=== PATIENT | female | born 1950 | race Caucasian/White ===

== ENCOUNTER → 2018-08-13 | Outpatient (CLI) | payer BC ==
[~2018-08-13] MED LIST: ALPR1TAB2 PO; ANAS1TAB47 PO; CALC1TAB80 PO; DULO60CA6 PO; HYDR-2145 PO; MELA3TAB2 PO; MULT-629 PO; OLME1TAB21 PO; OMEG1CAP6 PO; SERT50TA PO; TRAM50TA PO
--- NOTE | 2018-08-13 15:16 | KCIC ---
Bone densitometry 08/13/2018 12:30 PM Indication: Postmenopausal. History of breast cancer. Comparison Study: None. Discussion: Bone Densitometry was performed with dual photon absorption of the lumbar spine and proximal left femur.. Lumbar Spine: Bone average density is 1.577g/cm2 for L1-L4. T-Score is 4.8. Bone mineral density measurements of the lumbar spine may be falsely elevated secondary to sclerotic/ degenerative changes seen on CT of the lumbar spine from August 19, 2013. Left femoral neck: Bone average density is 1.143g/cm2. T-Score is 1.6. IMPRESSION: Normal bone mineral density. Note: Definitions established by the World Health Organization: Normal: T-score is -1.0 or above. Osteopenia: T-score is between -1.0 and -2.5. Osteoporosis: T-score is -2.5 or below. Electronically signed by: Eduard Knott MD (08/13/2018 3:13 PM) [id number]
== END | disposition home or self-care (01) ==
LOC: KCIC DEXA 12:16
PROVIDERS: ATTEND Internal Medicine Hematology & Oncology
DX: C50.112 Malignant neoplasm of central portion of left female breast (principal); Z78.0 Asymptomatic menopausal state; Z85.3 Personal history of malignant neoplasm of breast
CPT/HCPCS: 77080

== ENCOUNTER → 2020-07-03 | Outpatient (CLI) | payer BC, MEDICARE ==
[~2020-07-03] MED LIST changes: -MELA3TAB2 PO; +MELA3TAB4 PO
--- NOTE | 2020-07-03 15:09 | RAD ---
EXAM: Carotid Doppler sonogram. HISTORY: Internal carotid artery occlusion. Atherosclerosis. TECHNIQUE: Chung scale and color Doppler sonographic evaluation of the neck with spectral waveform yves lysis was performed and static images are submitted for review. FINDINGS: There is a right internal carotid artery stent. The peak systolic velocity within the right common carotid artery is 69 cm/sec. The peak systolic velocity within the right internal carotid art francesco is 84 cm/sec and the end diastolic velocity within the right internal carotid artery is 25 cm/sec . The right ICA/CCA ratio is 1.2. The peak systolic velocity within the left common carotid artery is 98 cm/sec. The peak systolic [place] within the left internal carotid artery is 76 cm/sec and the end diastolic velocity within the l eft internal carotid artery is 28 cm/sec. The left ICA/CCA ratio is 0.86. There is normal antegrade flow within both vertebral arteries. IMPRESSION: 1. Right internal carotid artery stent. 2. Doppler findings suggesting less than 50 percent stenosis involving the bilateral internal carotid arteries PQRS Compliance Statement - Stenosis calculations for CT, MR and conventional angiography are based u estelita measurement of the distal ICA diameter in accordance with the NASCET methodology. Stenosis calcu lations for carotid ultrasound studies are derived from validated velocity criteria which are known t o correlate with the NASCET methodology. Electronically signed by: Ann Longoria MD (07/03/2020 3:07 PM) [id number]
== END ==
LOC: US 13:43
PROVIDERS: ATTEND Psychiatry & Neurology Neurology
DX: I65.21 Occlusion and stenosis of right carotid artery (principal)
CPT/HCPCS: 93880

== ENCOUNTER → 2020-12-28 | Outpatient (CLI) | payer MEDICARE ==
[~2020-12-28] MED LIST changes: -DULO60CA6 PO; +DULO60CA7 PO
--- NOTE | 2020-12-28 15:34 | KCIC ---
STUDY: CT of the right and left extremities without contrast - Conformis protocol INDICATION: Primary a arthrosis of both knees. Preoperative planning. COMPARISON: No prior CT. TECHNIQUE: Axial CT imaging of the bilateral lower extremities without intravenous contrast. Per Conf ormis protocol, images were obtained of the hip, knee and ankle joints with thinner sections and kenyatta nal/sagittal reformats at the knee. One or more of the following individualized dose reduction techniques were utilized for this examinat ion: 1. Automated exposure control 2. Adjustment of the mA and/or kV according to patient size 3. Use of iterative reconstruction technique. FINDINGS: Right lower extremity: Hip: Mild arthrosis. Mild/moderate rectal distention with well-formed stool. Sigmoid diverticuli. Knee: Advanced tricompartmental osteoarthrosis with end-stage involvement of the medial compartment w here there is rnad-fu-xexs and articular surface remodeling. Prominent osteophytes. Small knee joint effusion with loose bodies. Grossly intact extensor mechanism. Small Delarosa's cyst. Ankle: Arthrosis at the ankle is mild. Chronic mineralization along the posterior margin of the media l gutter. Plantar calcaneal spur and thickening of the proximal plantar fascia. Left lower extremity: Hip: Mild arthrosis. Knee: Advanced tricompartmental osteoarthrosis with greatest involvement of the medial femorotibial c ompartment with near [id number]-[id number] in addition to subchondral sclerosis and cystic change. Prominent o steophytes. Trace joint effusion. A few loose bodies. Grossly intact extensor mechanism. Ankle: Mild arthrosis at the ankle. Plantar calcaneal spur and thickening of the proximal plantar fas ben. IMPRESSION: 1. Preoperative planning CT of both lower extremities per Conformis protocol. 2. Advanced arthrosis of both knees, slightly greater on the right, and with greatest involvement of the medial femorotibial compartment. No unexpected osseous or soft tissue finding at either knee, hi p or ankle that would preclude surgery. 3. Mild arthrosis at both the right and left hip and ankle. Electronically signed by: CIELO MOSER MD (12/28/2020 3:31 PM) [id number]
== END ==
LOC: KCIC CT 10:41
PROVIDERS: ATTEND Orthopaedic Surgery
DX: M17.0 Bilateral primary osteoarthritis of knee (principal); M16.0 Bilateral primary osteoarthritis of hip; M19.072 Primary osteoarthritis, left ankle and foot; M19.071 Primary osteoarthritis, right ankle and foot; M25.762 Osteophyte, left knee; M25.761 Osteophyte, right knee; M25.462 Effusion, left knee; M25.461 Effusion, right knee; M71.22 Synovial cyst of popliteal space [Baker], left knee; M71.21 Synovial cyst of popliteal space [Baker], right knee

== ENCOUNTER → 2021-02-08 | Outpatient (CLI) | payer MEDICARE ==
[~2021-02-08] MED LIST changes: +ACET500T68 PO; +ASPI-630 PO; +ATOR40TA59 PO; +FLUO40CA2 PO; +LISI20TA18 PO; +SENN8.6T11 PO
[2021-02-08 09:50] LABS: BILIRUBIN,URINE NEGATIVE (NEG); CLARITY,URINE CLEAR; COLOR,URINE YELLOW; NITRITE,URINE NEGATIVE (NEG); PROTEIN,URINE NEGATIVE (NEG-TRACE); UROBILINOGEN,URINE 0.2 mg/dL (0.2 mg/dL)
[2021-02-08 10:02] LABS: BACTERIA,URINE FEW /HPF (0-FEW); RBC,URINE 0 /HPF (0-2); WBC,URINE OCC /HPF (0-4)
[2021-02-08 10:04] LABS: BASO % 1 % (0-3); EOS # 0.1 x10^3/uL (0.0-0.7); EOS % 2 % (0-3); HEMATOCRIT 45.7 % (36.0-47.0); LYMPH # 2.1 x10^3/uL (1.0-4.8); LYMPH % 33 % (24-48); MEAN CORPUSCULAR HEMOGLOBIN 31 pg (25-35); MEAN CORPUSCULAR HGB CONC 33 g/dL (31-37); MEAN CORPUSCULAR VOLUME 93 fL (79-100); MONO # 0.5 x10^3/uL (0.0-1.1); MONO % 8 % (0-9); NEUT # 3.8 x10^3/uL (1.8-7.7); NEUT % 57 % (31-73); PLATELET COUNT 222 x10^3/uL (140-400); RED BLOOD COUNT 4.92 x10^6/uL (3.50-5.40); RED CELL DISTRIBUTION WIDTH 13.6 % (11.5-14.5); WHITE BLOOD COUNT 6.6 x10^3/uL (4.0-11.0)
[2021-02-08 10:16] LABS: ALBUMIN 3.9 g/dL (3.4-5.0); CALCIUM 8.7 mg/dL (8.5-10.1); CREATININE 0.7 mg/dL (0.6-1.0); GFR 83.2
[2021-02-08 10:18] LABS: PROTHROMBIN TIME PATIENT 11.5 SEC (11.7-14.0)
--- NOTE | 2021-02-08 16:54 | RAD ---
EXAM: Chest, 2 views. HISTORY: Hypertension. Preoperative evaluation. COMPARISON: None. FINDINGS: 2 views of the chest are obtained. There is no infiltrate, pleural effusion or pneumothorax . The heart is normal in size. IMPRESSION: No acute pulmonary finding. Electronically signed by: Ann Longoria MD (02/08/2021 4:51 PM) [id number]
[2021-02-09 02:32] LABS: HEMOGLOBIN A1C 5.6 % (4.8-5.6)
--- NOTE | 2021-02-11 12:56 | EKG ---
[facility] [address] [place] [address] Test Date: 2021-02-08 Test Time: 13:19:45 Pat Name: NAYLA BASS Department: Room: Gender: F Membership Coordinator: : 1950 Requested By: MARCO ANTONIO EMANUEL Order Number: [id number] Reading MD: Anam Anand Measurements Intervals [place] Rate: P: AK: QRS: QRSD: T: QT: QTc: Interpretive Statements SINUS RHYTHM Electronically Signed On 02-14-2021 16:23:20 [employer]UC[employer] PROFESSION[employer] by Anam Anand
== END ==
LOC: SURGPAT 14:11
PROVIDERS: ATTEND Orthopaedic Surgery
DX: Z01.812 Encounter for preprocedural laboratory examination (principal); M17.0 Bilateral primary osteoarthritis of knee
CPT/HCPCS: 36415; 71046; 80048; 81001; 82040; 82306; 83036; 85025; 85610; 85651; 85730; 87641; 93005